=== PATIENT | male | born 1950 | race Caucasian/White ===

== ENCOUNTER 2022-07-24 20:00 | Inpatient (IN) | payer MEDICARE, OTHER ==
[~2022-07-24] VITALS: Ht 175.3 cm; Wt 91.7 kg
[2022-07-24 20:01] VITALS: BP 120/63
[2022-07-24 20:45] VITALS: BP 102/60
[2022-07-24 21:05] LABS: BASO % 0.2 % (0.0-1.0); EOS % 0.4 % (1.0-4.0); LYMPH % 11.5 % (27.0-41.0); MEAN CELL VOLUME 100.3 fl (80.0-94.0); MEAN CORPUSCULAR HGB 31.3 pg (27.0-31.0); MEAN CORPUSCULAR HGB CONC 31.2 g/dl (33.0-37.0); MEAN PLATELET VOLUME 9.8 fl (9.6-12.3); MONO # 0.9 10*3/uL (0.1-1.0); NEUT # 6.9 10*3/uL (2.3-7.9); NEUT % 77.5 % (47.0-73.0); PLATELET COUNT AUTOMATED 167 10*3/uL (130-400); RED BLOOD COUNT 3.39 10*6/uL (4.50-5.90); RED CELL DISTRI WIDTH 17.1 % (0-14.5); WHITE BLOOD COUNT 8.9 10*3/uL (4.8-10.8)
[2022-07-24 21:10] LABS: POTASSIUM 4.5 mmol/L (3.4-5.1); TOTAL PROTEIN 5.5 gm/dL (6.0-8.0)
[2022-07-24 21:17] LABS: ACT PARTIAL THROMBO TIME 28.4 SECONDS (20.0-32.1); INTERNATIONAL NORM RATIO 1.5 (2.0-3.5)
[2022-07-24 21:35] VITALS: BP 101/60
[2022-07-24] MEDS ORDERED: ASPIRIN81 M1 PO (21:54)
[2022-07-24] MEDS ORDERED: COREG6.25 MG PO (21:54)
[2022-07-24] MEDS ORDERED: BUMETANIDE2 MG PO (21:54)
[2022-07-24] MEDS ORDERED: PLAVIX75 M1 PO (21:55)
[2022-07-24] MEDS ORDERED: VITAMIN D325 MCG PO (21:55)
[2022-07-24] MEDS ORDERED: PACERONE200 MG PO (21:56)
[2022-07-24] MEDS ORDERED: IMDUR SA30 MG PO (21:56)
[2022-07-24] MEDS ORDERED: OZEMPIC0.25 MG/01 SQ (21:56)
[2022-07-24] MEDS ORDERED: PRAVASTATIN SOD80 MG PO (21:57)
[2022-07-24 22:14] VITALS: BP 95/62
[2022-07-24 22:33] VITALS: BP 107/73
[2022-07-24 23:11] VITALS: BP 101/67
[2022-07-25] MEDS ORDERED: POTASSIUM CHLO10 MEQ PO (00:21)
[2022-07-25 05:15] LABS: BILIRUBIN Negative (Negative); BLOOD 1+ (Negative); CLARITY Clear (Clear); COLOR Yellow (Yellow); GLUCOSE Negative (Negative); KETONE Negative (Negative); LEUKO ESTERASE Negative (Negative); NITRITE Negative (Negative); SPECIFIC GRAVITY 1.015 (1.001-1.030)
[2022-07-25 05:23] LABS: FREE T4 1.15 ng/dl (0.89-1.76); POTASSIUM 4.3 mmol/L (3.4-5.1); THYROID STIM HORMONE (HS) 8.174 uIU/ml (0.550-4.780); TOTAL PROTEIN 5.3 gm/dL (6.0-8.0)
[2022-07-25 05:23] LABS: BACTERIA TRACE
[2022-07-25 05:25] LABS: VITAMIN D, 25-HYDROXY 83.9 ng/mL (30-100)
[2022-07-25 08:00] VITALS: BP 108/64
[2022-07-25 12:00] VITALS: BP 115/76
[2022-07-25 16:00] VITALS: BP 128/75
[2022-07-25 20:00] VITALS: BP 106/73
[2022-07-26] VITALS: BP 94/62
[2022-07-26 06:13] LABS: BASO % 0.2 % (0.0-1.0); EOS % 0.2 % (1.0-4.0); HEMATOCRIT 36.9 % (42.0-52.0); LYMPH # 1.4 10*3/uL (1.3-4.4); MEAN CELL VOLUME 102.8 fl (80.0-94.0); MEAN CORPUSCULAR HGB 30.6 pg (27.0-31.0); MEAN CORPUSCULAR HGB CONC 29.8 g/dl (33.0-37.0); MEAN PLATELET VOLUME 9.8 fl (9.6-12.3); MONO % 12.1 % (3.0-9.0); NEUT # 6.1 10*3/uL (2.3-7.9); NEUT % 71.2 % (47.0-73.0); PLATELET COUNT AUTOMATED 167 10*3/uL (130-400); RED BLOOD COUNT 3.59 10*6/uL (4.50-5.90); RED CELL DISTRI WIDTH 17.7 % (0-14.5); WHITE BLOOD COUNT 8.6 10*3/uL (4.8-10.8)
[2022-07-26 07:46] LABS: POTASSIUM 4.1 mmol/L (3.4-5.1)
[2022-07-26 08:00] VITALS: BP 103/62
== END 2022-07-26 11:12 | disposition home or self-care (01) | DRG 69 ==
LOC: ED 20:00 → EDHOLD 21:49 → 4E 21:49
PROVIDERS: Internal Medicine; Student in an Organized Health Care Education/Training Program; ADMIT Student in an Organized Health Care Education/Training Program; ATTEND Student in an Organized Health Care Education/Training Program
PROC: 5A1D70Z Performance of Urinary Filtration, Intermittent, Less than 6 Hours Per Day (ICD-10-PCS; principal; 2022-07-25)
DX: G45.9 Transient cerebral ischemic attack, unspecified (principal); N18.6 End stage renal disease; E44.0 Moderate protein-calorie malnutrition; I12.0 Hypertensive chronic kidney disease with stage 5 chronic kidney disease or end stage renal disease; E87.1 Hypo-osmolality and hyponatremia; I48.91 Unspecified atrial fibrillation; L89.312 Pressure ulcer of right buttock, stage 2; E83.39 Other disorders of phosphorus metabolism; D53.9 Nutritional anemia, unspecified; E87.8 Other disorders of electrolyte and fluid balance, not elsewhere classified; R74.01 Elevation of levels of liver transaminase levels; E11.65 Type 2 diabetes mellitus with hyperglycemia; E11.22 Type 2 diabetes mellitus with diabetic chronic kidney disease; E78.5 Hyperlipidemia, unspecified; Z95.5 Presence of coronary angioplasty implant and graft; Z68.30 Body mass index [BMI] 30.0-30.9, adult; Z90.49 Acquired absence of other specified parts of digestive tract; Z90.5 Acquired absence of kidney; Z87.891 Personal history of nicotine dependence; Z88.5 Allergy status to narcotic agent; Z79.82 Long term (current) use of aspirin; Z79.899 Other long term (current) drug therapy; Z99.2 Dependence on renal dialysis

== ENCOUNTER 2023-07-01 12:35 | Inpatient (IN) | payer OTHER, MEDICARE ==
[~2023-07-01] VITALS: Ht 167.6 cm; Wt 80.3 kg
[~2023-07-01 12:35] MED LIST: AMIODARONE HYD200 MG PO; ASPIRIN81 M1 PO; BUMETANIDE2 MG PO; Bactroban Oint22 GM T; COREG6.25 MG PO; DIALYVITE 5000 T5 MG PO; DIALYVITE TABL1 EACH PO; IMDUR SA30 MG PO; LANTUS SOL100 UNIT/1 SC; LEVOTHYROXINE25 MCG PO; MEXILETINE150 MG PO; MIDODRINE HCL5 M1 PO; NOVOLOG10 ML SC; OZEMPIC0.25 MG/01 SQ; PACERONE200 MG PO; PLAVIX75 M1 PO; POTASSIUM CHLO10 MEQ PO; PRAVASTATIN SOD80 MG PO; PROTONIX40 MG PO; Synthroid,Levo25 MCG PO; VITAMIN D325 MCG PO
[2023-07-01 12:45] VITALS: BP 34/0
[2023-07-01] MEDS ORDERED: ATROPINE SULFATE 1% 2 ML BOTTLE SL PRN (13:00)
[2023-07-01] MEDS ORDERED: DIAZEPAM 10 MG/2 ML SYR IV PRN (13:00)
[2023-07-01] MEDS ORDERED: MORPHINE Sulfate 5 MG IV PRN (13:00)
[2023-07-01] MEDS ORDERED: MORPHINE Sulfate 2 MG/ML SYR IV PRN (13:10)
[2023-07-01] MEDS ORDERED: fentaNYL CITRATE 1,000 MCG in SODIUM CHLORIDE 0.9% 230 ML IV SCH (13:30)
== END 2023-07-01 16:29 | DRG 871 ==
LOC: ICCU 12:35 → EDHOLD 12:35 → ICCU 12:41
PROVIDERS: ADMIT Student in an Organized Health Care Education/Training Program; ATTEND Student in an Organized Health Care Education/Training Program
DX: A41.9 Sepsis, unspecified organism (principal); E43 Unspecified severe protein-calorie malnutrition; J18.9 Pneumonia, unspecified organism; R65.21 Severe sepsis with septic shock; N18.6 End stage renal disease; E87.20 Acidosis, unspecified; E87.1 Hypo-osmolality and hyponatremia; J98.11 Atelectasis; J90 Pleural effusion, not elsewhere classified; I13.2 Hypertensive heart and chronic kidney disease with heart failure and with stage 5 chronic kidney disease, or end stage renal disease; I50.22 Chronic systolic (congestive) heart failure; L89.159 Pressure ulcer of sacral region, unspecified stage; Z51.5 Encounter for palliative care; E87.8 Other disorders of electrolyte and fluid balance, not elsewhere classified; I95.89 Other hypotension; E80.6 Other disorders of bilirubin metabolism; R74.01 Elevation of levels of liver transaminase levels; K80.80 Other cholelithiasis without obstruction; E11.65 Type 2 diabetes mellitus with hyperglycemia; E11.22 Type 2 diabetes mellitus with diabetic chronic kidney disease; I48.0 Paroxysmal atrial fibrillation; I48.91 Unspecified atrial fibrillation; Z95.5 Presence of coronary angioplasty implant and graft; Z90.5 Acquired absence of kidney; Z79.4 Long term (current) use of insulin; Z99.2 Dependence on renal dialysis; Z87.891 Personal history of nicotine dependence; Z68.27 Body mass index [BMI] 27.0-27.9, adult